=== PATIENT | female | born 1965 | race Caucasian/White ===

== ENCOUNTER 2021-01-31 12:06 | Emergency (ER) | payer OTHER ==
[2021-01-31 12:19] VITALS: BP 135/79; PULSE 83; O2SAT 98
--- NOTE | 2021-01-31 12:53 | ERPHSYRPT ---
- History of Present Illness Time Seen by Provider: 01/31/21 12:20 Source: patient Exam Limitations: no limitations Patient Subjective Stated Complaint: needing sutures Triage Nursing Assessment: to ed c/o possibly taking sutures out too soon, poss ibly needing sutures again. had attempted to use mastisol and steri strips at home but did not seem to help. Physician History: 55 years old female with 2 sebaceous cyst excision in upper back and suture removal done couple of days ago presented after noticing wound dehiscence on the right upper back cyst removal incision area. Minimal blood-tinged discharge. She applied Steri-Strips. Patient wants to get suture placed in again. Denies any fever or chills. Denies any pain. Allergies/Adverse Reactions: amoxicillin [Amoxicillin] Allergy (Verified 06/13/14 11:21) hydromorphone HCl [From Dilaudid] Allergy (Verified 06/13/14 11:21) morphine Allergy (Verified 06/13/14 11:21) Penicillins Allergy (Verified 01/31/21 12:20) Sulfa (Sulfonamide Antibiotics) Allergy (Verified 06/13/14 11:21) Home Medications: Levothyroxine Sodium 112 Mcg [Synthroid 112 Mcg] 112 mcg DAILY 06/13/14 [History] Sitagliptin Phosphate [Januvia] 25 mg DAILY 06/13/14 [History] Bupropion HCl 150 mg Sr [Wellbutrin SR 150 MG] 150 mg PO BID 01/31/21 [History] Hx Tetanus, Diphtheria Vaccination/Date Given: Yes (2 YEARS) Hx Influenza Vaccination/Date Given: Yes Hx Pneumococcal Vaccination/Date Given: No Immunizations Up to Date: Yes Travel Risk - International Travel Have you traveled outside of the country in past 3 weeks: No - Coronavirus Screening Are you exhibiting any of the following symptoms?: No Close contact with a COVID-19 positive Pt in past 14-21 Days: No - Vaccine Status Have you recieved a Covid-19 vaccination: 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[employer] - Vaccination Dates Date of 2cond Vaccination (if applicable): none Comment: had reaction to first vaccine - Review of Systems Constitutional: No Symptoms Eyes: No Symptoms Ears, Nose, & Throat: No Symptoms Respiratory: No Symptoms Cardiac: No Symptoms Abdominal/Gastrointestinal: No Symptoms Genitourinary Symptoms: No Symptoms Skin: Skin Lesions Neurological: No Symptoms Psychological: No Symptoms Endocrine: No Symptoms Hematologic/Lymphatic: No Symptoms - Past Medical History Pertinent Past Medical History: Yes Cardiac History: Other Endocrine Medical History: Hypothyroidism - Past Surgical History Past Surgical History: Yes Gastrointestinal: Appendectomy, Cholecystectomy Female Surgical History: Hysterectomy - Social History Smoking Status: Never smoker Exposure to second hand smoke: No Drug Use: none Patient Lives Alone: No - Female History Hx Now: No - Nursing Vital Signs Nursing Vital Signs: Initial Vital Signs Temperature 98.2 F 01/31/21 12:14 Pulse Rate 83 01/31/21 12:14 Respiratory Rate 18 01/31/21 12:14 Blood Pressure 135/79 01/31/21 12:14 O2 Sat by Pulse Oximetry 98 01/31/21 12:14 Pain Scale Pain Intensity 0 - Physical Exam General Appearance: no apparent distress, alert Eye Exam: PERRL/EOMI Neck Exam: normal inspection, supple, full range of motion Respiratory Exam: normal breath sounds, lungs clear Cardiovascular Exam: regular rate/rhythm, normal heart sounds Back Exam: other (1 cm dehisced wound at the right upper back. Good granulation tissue, inverted edges without any discharge.) Extremity Exam: normal inspection, normal range of motion Neurologic Exam: alert, oriented x 3, cooperative Skin Exam: normal color SpO2 Interpretation: normal SpO2: 98 O2 Delivery: Room Air - Progress Progress: improved Progress Note: 01/31/21 12:52 Patient has wound dehiscence, discussed with patient about secondary healing and does not need to be stitches applied. On her insistence I have applied Steri- Strips. Discussed signs symptoms of infection needing return to ER which she seems understanding. Counseled pt/family regarding: diagnosis, need for follow-up - Departure Departure Disposition: Home Clinical Impression: Wound dehiscence Condition: Stable Critical Care Time: No Referrals: MARTA SCHOFIELD [Primary Care Provider] - Follow Up with PCP/3 days Instructions: Surgical Wound (DC) Additional Instructions: Keep it clean. Follow-up with primary care physician for reevaluation. Return to ER for increasing swelling redness discharge/fever chills etc.
== END 2021-01-31 12:56 | disposition home or self-care (01) ==
LOC: ED 12:06
DX: T81.30XA Disruption of wound, unspecified, initial encounter (principal)
CPT/HCPCS: 99283

== ENCOUNTER 2021-02-26 12:04 | Emergency (ER) | payer OTHER ==
[2021-02-26] MEDS ORDERED: Zofran 4 MG/2 ML VIAL IV ONE (12:08)
[2021-02-26] MEDS ORDERED: Sodium Chloride 0.9% 1000 ML 1,000 ML IV STA (12:08)
--- NOTE | 2021-02-26 12:09 | ERPHSYRPT ---
- History of Present Illness Time Seen by Provider: 02/26/21 12:08 Historian: patient Exam Limitations: no limitations Physician History: This is a 55-year-old white female who states that she had 2 to 3-day history of worsening left flank pain. She underwent lab work this morning by her primary care physician. She does have a moderate urinary tract infection. However the pain worsened. It is possible that she has a ureteral stone and therefore she was sent to the emergency department for further evaluation and management. She denies nausea vomiting or diarrhea. She denies chest pain. She denies shortness of breath. The pain is sharp and begins in the left flank and goes around into the left lower quadrant. Timing/Duration: day(s) (2 to 3 days) Quality: sharpness Abdominal Pain Onset Location: flank (Left) Pain Radiation: LLQ Severity of Pain-Max: moderate Severity of Pain-Current: mild Modifying Factors: Improves With: nothing Associated Symptoms: denies symptoms Previous symptoms: no prior history Allergies/Adverse Reactions: amoxicillin [Amoxicillin] Allergy (Verified 06/13/14 11:21) hydromorphone HCl [From Dilaudid] Allergy (Verified 06/13/14 11:21) morphine Allergy (Verified 06/13/14 11:21) Penicillins Allergy (Verified 01/31/21 12:20) phenazopyridine [From Pyridium] Allergy (Verified 02/26/21 12:21) Swelling Sulfa (Sulfonamide Antibiotics) Allergy (Verified 06/13/14 11:21) Home Medications: Levothyroxine Sodium 112 Mcg [Synthroid 112 Mcg] 112 mcg DAILY 06/13/14 [History] Sitagliptin Phosphate [Januvia] 25 mg DAILY 06/13/14 [History] Bupropion HCl 150 mg Sr [Wellbutrin SR 150 MG] 150 mg PO BID 01/31/21 [History] Dapagliflozin Propanediol [Farxiga] 10 mg PO DAILY 02/26/21 [History] Hx Tetanus, Diphtheria Vaccination/Date Given: Yes (2 YEARS) Hx Influenza Vaccination/Date Given: Yes Hx Pneumococcal Vaccination/Date Given: No Travel Risk - International Travel Have you traveled outside of the country in past 3 weeks: No - Coronavirus Screening Are you exhibiting any of the following symptoms?: No Close contact with a COVID-19 positive Pt in past 14-21 Days: No - Vaccine Status Have you recieved a Covid-19 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: 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[employer] - Vaccination Dates Date of 2cond Vaccination (if applicable): none Comment: had reaction to first vaccine - Review of Systems Constitutional: No Symptoms Eyes: No Symptoms Ears, Nose, & Throat: No Symptoms Respiratory: No Symptoms Cardiac: No Symptoms Abdominal/Gastrointestinal: No Symptoms Genitourinary Symptoms: Flank Pain (Left) Musculoskeletal: No Symptoms Skin: No Symptoms Neurological: No Symptoms Psychological: No Symptoms Endocrine: No Symptoms Hematologic/Lymphatic: No Symptoms Immunological/Allergic: No Symptoms All Other Systems: Reviewed and Negative - Past Medical History Pertinent Past Medical History: Yes Cardiac History: Other Endocrine Medical History: Hypothyroidism - Past Surgical History Past Surgical History: Yes Gastrointestinal: Appendectomy, Cholecystectomy Female Surgical History: Hysterectomy - Social History Smoking Status: Never smoker Exposure to second hand smoke: No Drug Use: none Patient Lives Alone: No - Nursing Vital Signs Nursing Vital Signs: Initial Vital Signs Temperature 98 F 02/26/21 12:10 Pulse Rate 88 02/26/21 12:10 Blood Pressure 146/94 02/26/21 12:10 O2 Sat by Pulse Oximetry 98 02/26/21 12:10 Pain Scale Pain Intensity 10 - Physical Exam General Appearance: no apparent distress, alert, anxiety Eye Exam: PERRL/EOMI, eyes nml inspection Ears, Nose, Throat Exam: normal ENT inspection, moist mucous membranes Neck Exam: normal inspection, non-tender, supple, full range of motion Respiratory Exam: airway intact, No chest tenderness, No respiratory distress Gastrointestinal/Abdomen Exam: No tenderness Pelvic Exam: not done Rectal Exam: not done Back Exam: normal inspection, normal range of motion, CVA tenderness (Left), No vertebral tenderness Extremity Exam: normal inspection, normal range of motion, pelvis stable Neurologic Exam: alert, oriented x 3, cooperative, 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, normal mood/affect, nml cerebellar function, nml station & gait, sensation nml Skin Exam: normal color, warm, dry Lymphatic Exam: No adenopathy SpO2 Interpretation: normal O2 Delivery: Room Air - Course Nursing assessment & vital signs reviewed: Yes Ordered Tests: Active Orders 24 hr Category Date Time Status IV Insertion STAT Care 02/26/21 12:08 Active ABDOMEN AND PELVIS W/0 CONTRAS [CT] Stat Exams 02/26/21 12:09 Completed BLOOD CULTURE Stat Lab 02/26/21 13:05 Received Lactic Acid Stat Lab 02/26/21 12:13 Ordered Medication Summary Generic Name Dose Route Start Last Admin Trade Name Kassi PRN Reason Stop Dose Admin Levofloxacin/Dextrose 500 mg in 100 mls @ 100 mls/hr 02/26/21 12:39 02/26/21 12:49 Levofloxacin 500mg/100ml D5w IV 02/26/21 13:38 100 ml/hr STAT STA 100 mls/hr Administration Discontinued Medications Generic Name Dose Route Start Last Admin Trade Name Freq PRN Reason Stop Dose Admin Sodium Chloride 1,000 mls @ 999 mls/hr 02/26/21 12:08 Sodium Chloride 0.9% 1000 Ml IV 02/26/21 13:08 .[id number] STA Sodium Chloride Confirm 02/26/21 12:45 Sodium Chloride 0.9% 1000 Ml Administered 02/26/21 12:46 Dose 1,000 mls @ ud .ROUTE .STK-MED ONE Levofloxacin/Dextrose Confirm 02/26/21 12:45 Levofloxacin 500mg/100ml D5w Administered 02/26/21 12:46 Dose 500 mg in 100 mls @ ud IV .STK-MED ONE Ondansetron HCl 4 mg 02/26/21 12:08 02/26/21 12:50 Zofran 4 Mg/2 Ml Vial IV 02/26/21 12:09 4 mg STAT ONE Administration Ondansetron HCl Confirm 02/26/21 12:45 Zofran 4 Mg/2 Ml Vial Administered 02/26/21 12:46 Dose 4 mg .ROUTE .STK-MED ONE - Progress Progress: improved, pain not gone completely, re-examined Progress Note: 02/26/21 13:22 CAT scan of the abdomen pelvis without contrast shows no acute intra-abdominal or intrapelvic abnormality. There is a incompletely visualized 1.5 cm right lower lobe indeterminate noncalcified nodule. This was discussed with the patient and she will follow up as an outpatient. Counseled pt/family regarding: lab results, diagnosis, need for follow-up, rad results - Departure Departure Disposition: Home Clinical Impression: Urinary tract infection Condition: Stable Critical Care Time: No Referrals: MARTA SCHOFIELD [Primary Care Provider] - Additional Instructions: Drink plenty of fluids. Take your medication as prescribed. Use Tylenol and ibuprofen for pain control. Take your antibiotics as prescribed. Prescriptions: Ciprofloxacin [Cipro 500 MG] 500 mg PO BID #14 tablet
[2021-02-26] MEDS ORDERED: Levofloxacin 500MG/100ML D5W 500 MG/100 ML BAG IV STA (12:39)
[2021-02-26] MEDS ORDERED: Sodium Chloride 0.9% 1000 ML 0 ML ONE (12:45)
[2021-02-26] MEDS ORDERED: Zofran 4 MG/2 ML VIAL ONE (12:45)
[2021-02-26] MEDS ORDERED: Levofloxacin 500MG/100ML D5W 500 MG/100 ML BAG IV ONE (12:45)
--- NOTE | 2021-02-26 13:14 | XRAY ---
Indication: Left flank pain. Multiple contiguous axial images obtained through the abdomen and pelvis without contrast using renal stone protocol. Comparison: None Lung bases demonstrates minimal bilateral dependent atelectasis and incompletely visualized 1.5 cm peripheral right lower lobe noncalcified nodule. No infiltrate or effusion. Heart is not enlarged. Incidental incompletely visualized bilateral breast implants. No renal calculus or evidence for obstructive uropathy in either system. Noncontrasted stomach and bowel loops appear nonobstructed. There is mild diffuse scattered colonic fecal debris throughout and minimal sigmoid diverticulosis. Appendectomy, cholecystectomy, and hysterectomy reported. No free fluid/air. Remaining liver, pancreas, spleen, adrenal glands, kidneys, ureters, and bladder are unremarkable for noncontrast exam. Minimal aortic calcifications without AAA. Osseous structures intact with minimal degenerative changes throughout the thoracolumbar spine. No ventral or inguinal hernias. Impression: 1. Negative renal calculus or evidence for obstructive uropathy. 2. Mild diffuse fecal stasis and minimal sigmoid diverticulosis. 3. Incompletely visualized 1.5 cm right lower lobe indeterminant noncalcified nodule. Outside comparison studies recommended if available. If not, CT chest may yield further information.
[2021-02-26] MEDS ORDERED: Sodium Chloride 0.9% 1000 ML 1,000 ML ONE (13:23)
[2021-02-26 13:33] VITALS: BP 124/75; PULSE 70; O2SAT 97
[2021-02-26] MEDS ORDERED: SUBLIMAZE 100 MCG/2 ML IV ONE (13:59)
[2021-02-26] MEDS ORDERED: TORAdol 30 mg Injection IV ONE (13:59)
[2021-02-26] MEDS ORDERED: TORAdol 30 mg Injection ONE (14:01)
[2021-02-26] MEDS ORDERED: SUBLIMAZE 100 MCG/2 ML ONE (14:01)
== END 2021-02-26 16:00 | disposition home or self-care (01) ==
LOC: ED 12:04
DX: N39.0 Urinary tract infection, site not specified (principal); R10.32 Left lower quadrant pain; Z79.899 Other long term (current) drug therapy
CPT/HCPCS: 36415; 74176; 83605; 87040; 96365; 96374; 96375; 96376; 99284; J1885; J1956; J2405; J3010